=== PATIENT | male | born 1945 | race Caucasian/White ===

== ENCOUNTER 2021-04-19 17:48 | Emergency (ER) | payer OTHER ==
[2021-04-19 18:34] LABS: HEMOGLOBIN 12.8 gm/dl (14.0-17.5); RED BLOOD COUNT 4.49 M/UL (4.20-5.50); WHITE BLOOD COUNT 7.8 K/UL (4.5-11.0)
[2021-04-19 18:59] LABS: BUN/CREATININE RATIO 16 (0-10)
== END 2021-04-19 21:05 | disposition left against medical advice (07) ==
LOC: ER1 17:48
DX: I21.4 Non-ST elevation (NSTEMI) myocardial infarction (principal); I10 Essential (primary) hypertension; F17.200 Nicotine dependence, unspecified, uncomplicated; Z95.1 Presence of aortocoronary bypass graft; Z79.01 Long term (current) use of anticoagulants; Z91.041 Radiographic dye allergy status; Z88.2 Allergy status to sulfonamides
CPT/HCPCS: 71045; 80053; 82550; 82553; 83874; 84484; 85025; 85610; 85730; 93005; 96374; 99285; J1644

== ENCOUNTER → 2021-06-16 | Outpatient (CLI) | payer OTHER | LOC: RAD 16:59 | DX: M51.17 Intervertebral disc disorders with radiculopathy, lumbosacral region (principal); M50.122 Cervical disc disorder at C5-C6 level with radiculopathy; G89.29 Other chronic pain | CPT/HCPCS: 72040; 72100 ==

== ENCOUNTER 2021-07-19 10:10 | Inpatient (IN) | payer BLACK LUNG, OTHER ==
[~2021-07-19] VITALS: Ht 182.9 cm; Wt 81.6 kg
[2021-07-19 11:59] LABS: HEMOGLOBIN 11.8 gm/dl (14.0-17.5); RED BLOOD COUNT 3.98 M/UL (4.20-5.50); WHITE BLOOD COUNT 9.2 K/UL (4.5-11.0)
[2021-07-19] MEDS ORDERED: WELLBUTRIN SR200 MG PO (15:20)
[2021-07-19] MEDS ORDERED: ELIQUIS5 MG PO (15:20)
[2021-07-19] MEDS ORDERED: SILODOSIN4 MG PO (15:20)
[2021-07-19] MEDS ORDERED: NITROSTAT0.4 MG SL (15:21)
[2021-07-19] MEDS ORDERED: ZEBETA 5 MG TAB5 MG PO (15:21)
[2021-07-19] MEDS ORDERED: ASPIRIN EC81 MG PO (15:22)
[2021-07-20 03:11] LABS: HEMOGLOBIN 11.9 gm/dl (14.0-17.5); RED BLOOD COUNT 4.05 M/UL (4.20-5.50); WHITE BLOOD COUNT 9.8 K/UL (4.5-11.0)
--- NOTE | 2021-07-21 08:16 | NUR ---
patient given breathing treatment per RT, pulse ox high 90's noted. patient reports of feeling better. oxygen via nasal cannula in placed. a portable machine in the patient's room to monitor pulse ox, at this time pulse ox on 97%. contacted telemetry to send another pulse ox cord.
--- NOTE | 2021-07-21 08:30 | NUR ---
patient resting comfortably after eating breakfast, pulse ox on 98%.
--- NOTE | 2021-07-21 11:34 | NUR ---
spoken to dr. robledo and reported patient episode of pulse ox ranges 79-87% this morning, RT giving breathing treatment and patient using oxygen via nasal cannula at this time. patient pulse ox of 90-95%. dr robledo acknowledged and cont to titrate oxygen. patient denies sob at this time
--- NOTE | 2021-07-21 14:26 | NUR ---
patient desaturation to 79%, changed of telemetry box, and pulse ox tubing. patient sitting up in chair, RT given patient breathing treatment and currently @ 100% with 0xygen via nasal cannula in placed. patient denies any sob at this time.
--- NOTE | 2021-07-21 17:38 | NUR ---
Patient on o2 via nasal canula at 5 liters. patients o2 sat is at 95-100 percent. will continue to titrate oxygen.
[2021-07-21 19:09] LABS: HEMOGLOBIN 11.3 gm/dl (14.0-17.5); RED BLOOD COUNT 3.81 M/UL (4.20-5.50); WHITE BLOOD COUNT 9.5 K/UL (4.5-11.0)
[2021-07-22 07:11] LABS: HEMOGLOBIN 10.7 gm/dl (14.0-17.5); RED BLOOD COUNT 3.64 M/UL (4.20-5.50); WHITE BLOOD COUNT 9.4 K/UL (4.5-11.0)
[2021-07-23 03:43] LABS: HEMOGLOBIN 10.7 gm/dl (14.0-17.5); RED BLOOD COUNT 3.66 M/UL (4.20-5.50); WHITE BLOOD COUNT 11.4 K/UL (4.5-11.0)
--- NOTE | 2021-07-23 18:33 | NUR ---
of the patient was exiting the building and returned to the floor with an additional 30 minutes allowed time to visit the patient at approximately 1740. The patient's exited the room and stated that he was dying and needed assistance immediately. Patient's O2 sat was checked and it was difficult to acquire an accurate reading. MD Amezquita and Respiratory were called. An ABG was obtained at approximately 1750. An AD TAKER was called at 1755. At 1800 the patient's blood glucose was 170 and a 20g IV was placed in the left hand. At 1802 the patient was given two amps of bicarb, followed by the placement on BiPap at 1805. At 1806 the patient had a chest x-ray and was taken out to observation in ICU. Pulmonary Dr stated that it was potentially an episode of pulmonary edema and that he was acidodic. Patient remains a full code with potential intubation if required, at the request of the family.
[2021-07-23 18:44] LABS: HEMOGLOBIN 9.2 gm/dl (14.0-17.5)
[2021-07-23 18:47] LABS: RED BLOOD COUNT 3.18 M/UL (4.20-5.50); WHITE BLOOD COUNT 14.5 K/UL (4.5-11.0)
[2021-07-24 05:50] LABS: HEMOGLOBIN 8.9 gm/dl (14.0-17.5); RED BLOOD COUNT 3.1 M/UL (4.20-5.50); WHITE BLOOD COUNT 11.4 K/UL (4.5-11.0)
[2021-07-24 11:16] LABS: BORDETELLA PARAPERTUSSIS Not Detected (Not Detectd); BORDETELLA PERTUSSIS Not Detected (Not Detectd); CHLAMYDIA PNEUMONIAE Not Detected (Not Detectd); CORONAVIRUS HKU1 Not Detected (Not Detectd); CORONAVIRUS NL63 Not Detected (Not Detectd); CORONAVIRUS OC43 Not Detected (Not Detectd); CORONOAVIRUS 229E Not Detected (Not Detectd); HUMAN METAPNEUMOVIRUS Not Detected (Not Detectd); HUMAN RHINOVIRUS/ENTEROVIRUS Not Detected (Not Detectd); INFLUENZA A Not Detected (Not Detectd); INFLUENZA B Not Detected (Not Detectd); MYCOPLASMA PNEUMONIAE Not Detected (Not Detectd); PARAINFLUENZA VIRUS 1 Not Detected (Not Detectd); PARAINFLUENZA VIRUS 2 Not Detected (Not Detectd); PARAINFLUENZA VIRUS 3 Not Detected (Not Detectd); PARAINFLUENZA VIRUS 4 Not Detected (Not Detectd); RESPIRATORY SYNCYTIAL VIRUS Not Detected (Not Detectd)
[2021-07-24 12:40] LABS: SARS-CoV-2 NOT DETECTED (Not Detectd)
--- NOTE | 2021-07-24 20:57 | NUR ---
PRIOR TO PATIENT GOING INTO CARDIAC ARREST. PT STATED HE COULDNT BREATHE BIPAP WAS ON @ FI02 60 % WITH O2 SAT 96 %. PATIENT REQUESTED WATER, STAFF PROVIDED WITH WATER. NURSE LEFT THE ROOM TO GO GET A NEW BP CUFF MONITOR WAS READING LOW. UPON ARRIVAL BACK INTO ROOM PT WAS HAVING SHALLOW/ LABORED RESPIRATIONS. PT SKIN WAS PALE, NO PALABLE PULSE ABLE TO BE OBTAINED. PT WAS APNEIC FOR APPROX 15-20 SECONDS 2 BREATHS WAS TAKEN BY PATIENT. PATIENT THEN WENT ASYSTOLE ACCORDING TO MONITOR NOT PULSE PALABLE. [address] DOBSON AND DR. CRANDALL AT BED SIDE
== END 2021-07-24 23:19 | disposition expired ==
LOC: ER1 10:10 → CDU 14:33 → M/S 14:33 → CCU 07-23 18:37
PROVIDERS: Nurse Practitioner; Physician Assistant; ADMIT Internal Medicine
PROC: B24BZZZ Ultrasonography of Heart with Aorta (ICD-10-PCS; 2021-07-20)
PROC: 0BH18EZ Insertion of Endotracheal Airway into Trachea, Via Natural or Artificial Opening Endoscopic (ICD-10-PCS; principal; 2021-07-24)
PROC: 5A1935Z Respiratory Ventilation, Less than 24 Consecutive Hours (ICD-10-PCS; 2021-07-24)
PROC: 5A09457 Assistance with Respiratory Ventilation, 24-96 Consecutive Hours, Continuous Positive Airway Pressure (ICD-10-PCS; 2021-07-24)
PROC: 3E033XZ Introduction of Vasopressor into Peripheral Vein, Percutaneous Approach (ICD-10-PCS; 2021-07-24)
PROC: 5A12012 Performance of Cardiac Output, Single, Manual (ICD-10-PCS; 2021-07-24)
DX: I13.0 Hypertensive heart and chronic kidney disease with heart failure and stage 1 through stage 4 chronic kidney disease, or unspecified chronic kidney disease (principal); I50.23 Acute on chronic systolic (congestive) heart failure; I21.A1 Myocardial infarction type 2; J80 Acute respiratory distress syndrome; J69.0 Pneumonitis due to inhalation of food and vomit; R65.20 Severe sepsis without septic shock; A41.89 Other specified sepsis; R04.2 Hemoptysis; N17.9 Acute kidney failure, unspecified; E87.2 Acidosis; J98.11 Atelectasis; R64 Cachexia; E87.1 Hypo-osmolality and hyponatremia; I46.8 Cardiac arrest due to other underlying condition; Z20.822 Contact with and (suspected) exposure to COVID-19; I25.10 Atherosclerotic heart disease of native coronary artery without angina pectoris; I08.3 Combined rheumatic disorders of mitral, aortic and tricuspid valves; I25.5 Ischemic cardiomyopathy; I49.5 Sick sinus syndrome; J44.9 Chronic obstructive pulmonary disease, unspecified; F17.210 Nicotine dependence, cigarettes, uncomplicated; F41.9 Anxiety disorder, unspecified; E86.0 Dehydration; I48.0 Paroxysmal atrial fibrillation; D41.9 Neoplasm of uncertain behavior of unspecified urinary organ; N18.30 Chronic kidney disease, stage 3 unspecified; Z98.890 Other specified postprocedural states; Z79.82 Long term (current) use of aspirin; Z88.2 Allergy status to sulfonamides; Z79.01 Long term (current) use of anticoagulants; Z95.0 Presence of cardiac pacemaker; Z95.1 Presence of aortocoronary bypass graft; Z82.49 Family history of ischemic heart disease and other diseases of the circulatory system; Z68.24 Body mass index [BMI] 24.0-24.9, adult
CPT/HCPCS: ECHO; 31500; 36415; 36600; 71045; 71046; 80048; 80053; 80202; 82550; 82553; 82803; 83605; 83874; 83880; 84484; 85025; 85027; 85379; 85610; 85730; 87040; 87070; 87077; 87186; 87205; 87633; 92950; 93005; 93306; 94640; 94660; 94664; 94760; 96374; 97110-GP-CQ; 97161; 97530; 97530-GP-CQ; 99285; J0171; J0696; J1644; J1940; J2001; J2185; J2405; J2930; J3370; J3475; J7030; J7070; P9047; Q9967; U0002